=== PATIENT | female | born 1975 | race Caucasian/White ===

== ENCOUNTER 2019-11-01 18:08 | Emergency (ER) | payer MEDICAID ==
[~2019-11-01] VITALS: Ht 167.6 cm; Wt 181.8 kg
[2019-11-01 18:14] VITALS: BP 120/76; Ht 167.6 cm; Wt 181.8 kg
[2019-11-01] MEDS ORDERED: ZOFRAN4 MG (18:18)
[2019-11-01] MEDS ORDERED: VISTARIL50 MG PO (18:18)
[2019-11-01] MEDS ORDERED: IMITREX100 MG PO (18:19)
[2019-11-01] MEDS ORDERED: PERCOCET 10-321 EAC1 PO (18:19)
[2019-11-01] MEDS ORDERED: FUROSEMIDE20 MG PO (18:19)
[2019-11-01] MEDS ORDERED: BACLOFEN20 M1 PO (18:20)
[2019-11-01] MEDS ORDERED: MAGNESIUM (18:20)
[2019-11-01] MEDS ORDERED: NEURONTIN600 MG PO (18:20)
[2019-11-01] MEDS ORDERED: POTASSIUM (18:20)
[2019-11-01] MEDS ORDERED: MOBIC7.5 MG PO (18:20)
[2019-11-01] MEDS ORDERED: FOLIC ACID (18:21)
[2019-11-01] MEDS ORDERED: MULTIVITAMIN (18:21)
[2019-11-01] MEDS ORDERED: CALCIUM WITH D (18:21)
[2019-11-01] MEDS ORDERED: MECLIZINE HCL25 MG PO (18:26)
[2019-11-01] MEDS ORDERED: TRAZODONE HCL150 MG PO (18:26)
[2019-11-01 19:29] LABS: BASOPHILS 0.2 % (0-2); EOSINOPHILS 2.9 % (0-7); HEMATOCRIT 44.2 % (36.0-48.0); HEMOGLOBIN 15.1 g/dL (12-16); IMMATURE GRANULOCYTES 0.8 % (0-5); LYMPHOCYTES 30.9 % (15-50); MCH 31.5 pg (26.0-34.0); MCHC 34.2 g/dL (31.0-37.0); MCV 92.1 fL (80.0-100.0); MEAN PLATELET VOLUME 9.7 fL (7.4-10.4); MONOCYTES 7.5 % (2-11); NEUTROPHILS 57.7 % (40-80); PLATELET COUNT 252 10x3/uL (130-400); RDW 12.8 % (11.5-14.5); WBC 10.7 10x3/uL (4.8-10.8)
[2019-11-01 19:34] LABS: CALC OSMOLALITY 278 mosm/kg (275-300); CALCIUM 8.9 mg/dL (8.5-10.1); CARBON DIOXIDE 31.8 mmol/L (21.0-32.0); CHLORIDE - SERUM 100 mmol/L (98-107); GLUCOSE 125 mg/dL (74-106); POTASSIUM - SERUM 3.7 mmol/L (3.5-5.1); SODIUM 139 mmol/L (136-145); UREA NITROGEN 13 mg/dL (7-18); eGFR NON AFRICAN AMERICAN 63 mL/min (90-120)
[2019-11-01 19:38] LABS: APPEARANCE CLEAR (CLEAR); BILIRUBIN NEGATIVE (NEGATIVE); COLOR YELLOW (YELLOW); GLUCOSE NEGATIVE (NEGATIVE); KETONE NEGATIVE (NEGATIVE); NITRITE NEGATIVE (NEGATIVE); PROTEIN NEGATIVE (NEGATIVE); SPECIFIC GRAVITY 1.015 (1.005-1.020); UROBILINOGEN NORMAL (NORMAL)
[2019-11-01 19:51] LABS: ALBUMIN 3.4 g/dL (3.4-5.0); ALKALINE PHOSPHATASE 53 U/L (46-116); ALT (SGPT) 25 U/L (10-68); BILIRUBIN - TOTAL 0.32 mg/dL (0.2-1.3); CKMB 0.2 U/L (0.0-3.6); CREATINE KINASE 36 UL (21-215); MAGNESIUM - SERUM 1.7 mg/dL (1.8-2.4); TROPONIN-I < 0.017 ng/mL (0.000-0.060)
== END 2019-11-01 20:07 | disposition left against medical advice (07) ==
LOC: D.ER 18:08
PROVIDERS: Family Medicine
DX: F41.9 Anxiety disorder, unspecified (principal); F43.20 Adjustment disorder, unspecified; R79.89 Other specified abnormal findings of blood chemistry; E11.9 Type 2 diabetes mellitus without complications